=== PATIENT | female | born 1965 | race Caucasian/White ===

== ENCOUNTER 2017-11-20 06:59 | Emergency (ER) | payer OTHER ==
[~2017-11-20] VITALS: Ht 162.6 cm; Wt 64.4 kg
[~2017-11-20 06:59] MED LIST: ANAPROX275 MG PO; CIPRO500 MG PO; MOBIC15 MG PO; SEPTRA DS TABLE1 TAB PO; TANDEM PLUS PO; ZANAFLEX2 MG PO
[2017-11-20] MEDS ORDERED: PROTONIX20 MG PO (08:01)
[2017-11-20] MEDS ORDERED: HYDROXYCHLOROQ100 GM MC (08:01)
[2017-11-20] MEDS ORDERED: PREDNISONE20 MG PO (08:01)
[2017-11-20] MEDS ORDERED: CELLCEPT500 MG PO (08:02)
== END 2017-11-20 11:42 | disposition home or self-care (01) ==
LOC: ER 06:59
DX: R42 Dizziness and giddiness (principal)

== ENCOUNTER 2018-02-02 12:24 | Emergency (ER) | payer OTHER ==
[~2018-02-02] VITALS: Ht 162.6 cm; Wt 61.7 kg
[~2018-02-02 12:24] MED LIST changes: +CELLCEPT500 MG PO; +HYDROXYCHLOROQ100 GM MC; +PREDNISONE20 MG PO; +PROTONIX20 MG PO
[2018-02-02] MEDS ORDERED: PLAQUENIL (12:48)
[2018-02-02] MEDS ORDERED: LEVAQUIN750 MG PO (16:09)
[2018-02-02] MEDS ORDERED: MEDROLPACK PO (16:09)
[2018-02-02] MEDS ORDERED: TUSSI PRES-B L120 M1 PO (16:09)
== END 2018-02-02 16:25 | disposition home or self-care (01) ==
LOC: ER 12:24 → EMR PED 12:24 → ER 13:35
DX: J06.9 Acute upper respiratory infection, unspecified (principal)

== ENCOUNTER 2019-08-26 08:03 | Outpatient (CLI) | payer OTHER | END 2019-08-26 08:16 | disposition home or self-care (01) | LOC: MAMO-SONO 08:03 | PROVIDERS: ATTEND Obstetrics & Gynecology | DX: Z12.31 Encounter for screening mammogram for malignant neoplasm of breast (principal); N64.4 Mastodynia ==

== ENCOUNTER → 2019-08-26 | Outpatient (CLI) | payer OTHER ==
[~2019-08-26] MED LIST changes: +LEVAQUIN750 MG PO; +MEDROLPACK PO; +PLAQUENIL; +TUSSI PRES-B L120 M1 PO
== END | disposition home or self-care (01) ==
LOC: NUCLEAR 09:07
PROVIDERS: ATTEND Obstetrics & Gynecology
DX: M81.0 Age-related osteoporosis without current pathological fracture (principal); M85.80 Other specified disorders of bone density and structure, unspecified site; Z13.820 Encounter for screening for osteoporosis

== ENCOUNTER 2019-11-15 12:27 | Outpatient (CLI) | payer OTHER | END 2019-11-15 12:34 | disposition home or self-care (01) | LOC: MAMO-SONO 12:27 | PROVIDERS: ATTEND Obstetrics & Gynecology | DX: N60.01 Solitary cyst of right breast (principal); N60.02 Solitary cyst of left breast; Z80.3 Family history of malignant neoplasm of breast; M35.1 Other overlap syndromes; M35.00 Sjogren syndrome, unspecified ==

== ENCOUNTER 2019-11-17 08:41 | Outpatient (CLI) | payer OTHER | END 2019-11-17 08:54 | disposition home or self-care (01) | LOC: NUCLEAR 08:41 | PROVIDERS: ATTEND Internal Medicine | DX: M35.1 Other overlap syndromes (principal); M35.00 Sjogren syndrome, unspecified | CPT/HCPCS: 78315; A9503 ==

== ENCOUNTER 2022-02-28 08:54 | Outpatient (CLI) | payer OTHER | END 2022-02-28 09:03 | disposition home or self-care (01) | LOC: MAMO-SONO 08:54 | PROVIDERS: ATTEND Obstetrics & Gynecology | DX: Z12.31 Encounter for screening mammogram for malignant neoplasm of breast (principal); R60.0 Localized edema; H04.123 Dry eye syndrome of bilateral lacrimal glands; Z80.3 Family history of malignant neoplasm of breast; N60.02 Solitary cyst of left breast; N60.01 Solitary cyst of right breast; N94.19 Other specified dyspareunia; R93.5 Abnormal findings on diagnostic imaging of other abdominal regions, including retroperitoneum; N95.2 Postmenopausal atrophic vaginitis; K59.00 Constipation, unspecified; N60.12 Diffuse cystic mastopathy of left breast; N60.11 Diffuse cystic mastopathy of right breast ==